=== PATIENT | female | born 2000 | race Two or more races ===

== ENCOUNTER 2025-04-23 13:00 | Emergency (ER) | payer OTHER ==
[~2025-04-23] VITALS: Ht 165.1 cm; Wt 108.9 kg
[2025-04-23] MEDS ORDERED: IBUPROFEN 600 MG TABLET PO ONE (16:00)
[2025-04-23] MEDS ORDERED: CYCL10TA9 PO (16:11)
[2025-04-23] MEDS ORDERED: IBUP-1955 PO (16:11)
[2025-04-23 16:17] VITALS: BP 119/74; TEMP 97.9; O2SAT 99
== END 2025-04-23 16:18 | disposition home or self-care (01) ==
LOC: ER 13:04
DX: S16.1XXA Strain of muscle, fascia and tendon at neck level, initial encounter (principal); S20.212A Contusion of left front wall of thorax, initial encounter; S89.81XA Other specified injuries of right lower leg, initial encounter; J45.909 Unspecified asthma, uncomplicated; Z79.1 Long term (current) use of non-steroidal anti-inflammatories (NSAID); V49.49XA Driver injured in collision with other motor vehicles in traffic accident, initial encounter; Y93.89 Activity, other specified; Y92.415 Exit ramp or entrance ramp of street or highway as the place of occurrence of the external cause; Y99.8 Other external cause status
CPT/HCPCS: 71045-TC; 72050-TC; 73564-TC